=== PATIENT | male | born 1980 ===

== ENCOUNTER 2020-09-12 15:23 | Emergency (ER) | payer OTHER ==
[~2020-09-12] VITALS: Ht 167.6 cm; Wt 68.0 kg
== END 2020-09-12 19:46 | disposition home or self-care (01) ==
LOC: ER 15:23
DX: J45.998 Other asthma (principal); Z11.52 Encounter for screening for COVID-19

== ENCOUNTER 2020-09-22 06:23 | Emergency (ER) | payer OTHER ==
[~2020-09-22] VITALS: Ht 180.3 cm; Wt 104.3 kg
[2020-09-22] MEDS ORDERED: VISTARIL25 MG PO (10:27)
== END 2020-09-22 10:56 | disposition home or self-care (01) ==
LOC: ER 06:23
DX: R06.02 Shortness of breath (principal)